=== PATIENT | male | born 1980 | race Caucasian/White ===

== ENCOUNTER 2024-01-14 08:07 | Emergency (ER) | payer BC, OTHER ==
[2024-01-14] MEDS ORDERED: Morphine 4 MG/ML VIAL ONE (08:58)
[2024-01-14 09:08] LABS: #Basophils 0.03 10x3/uL (0.0-0.2); #Eosinophils 0.16 10x3/uL (0.0-0.5); #Monocytes 0.59 10x3/uL (0.0-1.1); #Neutrophils 5.23 10x3/uL (1.5-8.4); %Basophils 0.4 % (0.0-2.0); %Eosinophils 1.9 % (0.0-6.0); %Lymphocytes 28.2 % (18.0-47.0); %Neutrophils 62.3 % (40.0-75.0); Hematocrit 44.4 % (38.8-50.0); Hemoglobin 15.1 g/dL (13.5-17.5); Mean Corpuscular Hemoglobin 30.9 pg (27.0-33.0); Mean Platelet Volume 10.6 fL (7.4-10.4); Platelet Count 222 10x3/uL (150-450); RBC Distribution Width 11.4 % (11.5-14.5); Red Blood Cell (RBC) Count 4.88 10x6/uL (4.32-5.72); White Blood Cell (WBC) Count 8.4 10x3/uL (3.5-10.5)
[2024-01-14 09:20] LABS: ALT (SGPT) 32 U/L (8-55); AST (SGOT) 20 U/L (5-34); Albumin 4.2 g/dL (3.5-5.0); Alkaline Phosphatase 76 U/L (40-110); Anion Gap 13 mmol/L (10-20); BUN (Urea Nitrogen) 15 mg/dL (8.9-20.6); Bilirubin, Total 0.8 mg/dL (0.2-1.2); Calc. Creatinine Clearance 0 mL/min (70-130); Calcium 9.6 mg/dL (7.8-10.44); Carbon Dioxide 22 mmol/L (22-29); Chloride 107 mmol/L (98-107); Estimated GFR 78; Globulin 2.6 g/dL (2.4-3.5); Glucose 93 mg/dL (70-105); Lipase 24 U/L (8-78); Potassium 4.2 mmol/L (3.5-5.1); Protein, Total 6.8 g/dL (6.0-8.3); Sodium 138 mmol/L (136-145)
[2024-01-14 09:23] LABS: Troponin I Less than 0.010 ng/mL (< 0.028)
[2024-01-14] MEDS ORDERED: Lidocaine 4% Patch ONE (09:58)
[2024-01-14] MEDS ORDERED: Iopamidol 370 76% 100 ML VIAL ONE (12:34)
== END 2024-01-14 12:30 | disposition home or self-care (01) ==
LOC: CSHERS 08:07
DX: M62.830 Muscle spasm of back (principal); R29.898 Other symptoms and signs involving the musculoskeletal system; F17.210 Nicotine dependence, cigarettes, uncomplicated; Z55.6 Problems related to health literacy
CPT/HCPCS: 36415; 71045; 71275; 74174; 80053; 83690; 83735; 84484; 85025; 93005; 96374; J2272; Q9967